=== PATIENT | female | born 1945 | race Caucasian/White ===

== ENCOUNTER 2023-11-25 16:43 | Inpatient (IN) | payer OTHER ==
[~2023-11-25] VITALS: Ht 157.5 cm; Wt 59.0 kg
[2023-11-25 16:59] VITALS: BP 151/78; PULSE 88; RESP 18; TEMP 98; O2SAT 98
[2023-11-25 21:02] LABS: BASOPHILS % (AUTO) 0.5 % (0.0-2.0); EOSINOPHILS # (AUTO) 0.1 K/uL (0-0.4); EOSINOPHILS % (AUTO) 1.2 % (0.0-4.0); HEMATOCRIT 33.4 % (36-48); HEMOGLOBIN 11.3 g/dL (12.0-16.0); LYMPHOCYTES # (AUTO) 1.7 K/uL (2.5-16.5); LYMPHOCYTES % (AUTO) 20.5 % (20.5-51.1); MEAN CORPUSCULAR HEMOGLOBIN 30 pg (27-31); MEAN CORPUSCULAR HGB CONC 34 g/dL (33-37); MONOCYTES # (AUTO) 1.2 K/uL (0.8-1.0); NEUTROPHILS # (AUTO) 5.4 K/uL (1.8-7.7); NEUTROPHILS % (AUTO) 63.8 % (42.2-75.2); PLATELET COUNT (AUTO) 345 K/uL (140-450); RED BLOOD CELL COUNT(AUTO) 3.79 MIL/uL (4.20-5.40); RED CELL DISTRIBUTION WIDTH 12.2 % (11.6-13.7); WHITE BLOOD COUNT (AUTO) 8.5 K/uL (4.8-10.8)
[2023-11-25 21:15] LABS: ANION GAP 18.2 (8-16); CARBON DIOXIDE 22.3 mmol/L (21-32); CHLORIDE 94 mmol/L (98-107); CREATININE 0.8 mg/dL (0.6-1.3); GLUCOSE 189 mg/dL (74-106); POTASSIUM 3.5 mmol/L (3.5-5.1); SODIUM SERUM 131 mmol/L (136-145); UREA NITROGEN, BLOOD 15 mg/dL (7-18)
[2023-11-25 21:21] LABS: ALBUMIN 3.2 g/dL (3.4-5.0); BILIRUBIN,DIRECT 0.2 mg/dL (0.0-0.3); TOTAL BILIRUBIN 0.7 mg/dL (0.0-1.0); TOTAL PROTEIN, SERUM 6.7 g/dL (6.4-8.2)
[2023-11-25 22:03] LABS: APPEARANCE,URINE SL CLOUDY (CLEAR); BILIRUBIN,URINE 1+ (NEGATIVE); BLOOD, URINE 1+ (NEGATIVE); COLOR,URINE YELLOW (YELLOW); LEUKOCYTE ESTERASE ,URINE 1+ (NEGATIVE); NITRITE, URINE NEGATIVE (NEGATIVE); PROTEIN,URINE 1+ (NEGATIVE); UGLUCOSE 3+ (NEGATIVE)
[2023-11-25 22:07] LABS: ICTOTEST NEGATIVE (NEGATIVE)
[2023-11-25 22:08] LABS: BACTERIA,URINE 2+ /HPF (None Seen); MUCUS,URINE None Seen /LPF (None Seen); SQUAMOUS EPITHELIAL CELL,UR 0-3 (FEW) /LPF (0-3 (FEW))
[2023-11-25] MEDS ORDERED: cefTRIAXone 1,000 MG VIAL ONE (22:40)
[2023-11-25] MEDS: ASPIRIN 81 MG TAB.CHEW PO ONE (22:51)
[2023-11-25] MEDS ORDERED: LOSA100T52 PO (23:38)
[2023-11-25] MEDS ORDERED: METF-350 PO (23:38)
[2023-11-25] MEDS ORDERED: POTA10CA28 PO (23:38)
[2023-11-25] MEDS ORDERED: PANT40EC56 PO (23:38)
[2023-11-25] MEDS ORDERED: ESCI20TA PO (23:42)
[2023-11-25] MEDS ORDERED: ISOS20TA13 PO (23:42)
[2023-11-25] MEDS ORDERED: LIP80 PO (23:42)
[2023-11-25] MEDS ORDERED: ATA25 PO (23:42)
[2023-11-25] MEDS ORDERED: BUS5 PO (23:42)
[2023-11-26] MEDS ORDERED: ONDANSETRON 4 MG/2 ML VIAL IVP PRN (02:00)
[2023-11-26] MEDS: NACL 0.9% 1,000 ML IV SCH (05:30)
[2023-11-26] MEDS: MORPHINE SULFATE 2 MG/ML SYR IVP PRN (07:55)
[2023-11-26] MEDS: HYDROcodone/APAP 5/325 MG 1 TAB TAB PO PRN (14:32)
[2023-11-26] MEDS: ACETAMINOPHEN 325 MG TAB PO PRN (18:06)
[2023-11-26 20:45] VITALS: BP 162/71; PULSE 96; PULSE 97; RESP 18; TEMP 97.9; O2SAT 97; O2SAT 98
[2023-11-26] MEDS: cefTRIAXone 1,000 MG VIAL ONE (21:52)
[2023-11-26] MEDS: HYDROXYZINE HYDROCHLORIDE 25 MG TAB PO ONE (23:42)
[2023-11-26] MEDS: ESCITALOPRAM 20 MG TAB PO ONE (23:43)
[2023-11-27 04:00] VITALS: BP 157/49; PULSE 78; RESP 18; TEMP 97.7; O2SAT 95
[2023-11-27 06:59] LABS: BASOPHILS % (AUTO) 0.5 % (0.0-2.0); EOSINOPHILS # (AUTO) 0.1 K/uL (0-0.4); EOSINOPHILS % (AUTO) 2.2 % (0.0-4.0); HEMATOCRIT 33.9 % (36-48); HEMOGLOBIN 11.6 g/dL (12.0-16.0); LYMPHOCYTES # (AUTO) 1.8 K/uL (2.5-16.5); LYMPHOCYTES % (AUTO) 28.7 % (20.5-51.1); MEAN CORPUSCULAR HEMOGLOBIN 30 pg (27-31); MEAN CORPUSCULAR HGB CONC 34 g/dL (33-37); MEAN CORPUSCULAR VOLUME 87.3 fL (80-94); MONOCYTES # (AUTO) 1.3 K/uL (0.8-1.0); MONOCYTES % (AUTO) 19.4 % (1.7-9.3); NEUTROPHILS # (AUTO) 3.2 K/uL (1.8-7.7); NEUTROPHILS % (AUTO) 49.2 % (42.2-75.2); PLATELET COUNT (AUTO) 373 K/uL (140-450); RED BLOOD CELL COUNT(AUTO) 3.88 MIL/uL (4.20-5.40); RED CELL DISTRIBUTION WIDTH 12.5 % (11.6-13.7); WHITE BLOOD COUNT (AUTO) 6.4 K/uL (4.8-10.8)
[2023-11-27 07:37] LABS: ALANINE AMINOTRANSFERASE 29 U/L (12-78); ALBUMIN 2.7 g/dL (3.4-5.0); ALKALINE PHOSPHATASE 82 U/L (50-136); ANION GAP 17.8 (8-16); ASPARTATE AMINOTRANSFERASE 34 U/L (15-37); CALCIUM 8.2 mg/dL (8.5-10.1); CARBON DIOXIDE 22.2 mmol/L (21-32); CHLORIDE 97 mmol/L (98-107); CREATININE 0.7 mg/dL (0.6-1.3); GLUCOSE 169 mg/dL (74-106); SODIUM SERUM 134 mmol/L (136-145); TOTAL BILIRUBIN 0.5 mg/dL (0.0-1.0); TOTAL PROTEIN, SERUM 6.9 g/dL (6.4-8.2); UREA NITROGEN, BLOOD 10 mg/dL (7-18)
[2023-11-27 08:00] VITALS: BP 167/70; PULSE 94; PULSE 97; RESP 18; TEMP 97.7; O2SAT 97; O2SAT 98
[2023-11-27] MEDS: HYDROXYZINE HYDROCHLORIDE 25 MG TAB PO SCH (08:56)
[2023-11-27] MEDS: busPIRone 5 MG TAB PO SCH ×2 (12:00→20:57)
[2023-11-27] MEDS ORDERED: NON-FORMULARY ITEM (Losartan Potassium 100 MG) PO SCH (15:17)
[2023-11-27] MEDS: POTASSIUM CHLORIDE 10 MEQ TABER PO SCH (16:32)
[2023-11-27] MEDS: LOSARTAN 50 MG TAB PO SCH (16:32)
[2023-11-27] MEDS: HYDROcodone/APAP 5/325 MG 1 TAB TAB PO PRN (18:40)
[2023-11-27 20:00] VITALS: BP 109/49; PULSE 103; RESP 18; TEMP 97.1; O2SAT 97; O2SAT 98
[2023-11-27] MEDS: ESCITALOPRAM 20 MG TAB PO SCH (20:58)
[2023-11-27] MEDS: FLUTICASONE NASAL 50 MCG/ACTUATION 16 GM BTL NS SCH (21:02)
[2023-11-28 04:00] VITALS: BP 149/55; PULSE 100; RESP 18; TEMP 97.2; O2SAT 97
[2023-11-28] MEDS: HYDRAGUARD CREAM TP ONE (05:04)
[2023-11-28 08:00] VITALS: BP 146/70; PULSE 88; RESP 18; TEMP 97.2; O2SAT 98; O2SAT 99
[2023-11-28] MEDS: ISOSORBIDE DINITRATE 20 MG TAB PO SCH (09:16)
[2023-11-28] MEDS: PANTOPRAZOLE 40 MG TABEC PO SCH (09:17)
[2023-11-28] MEDS: ATORVASTATIN 80 MG TAB PO SCH (09:17)
[2023-11-28] MEDS ORDERED: HYDRAGUARD CREAM TP PRN (13:00)
[2023-11-28 16:00] VITALS: BP 144/67; PULSE 103; RESP 18; TEMP 98.3; O2SAT 98
[2023-11-28 20:00] VITALS: PULSE 95; RESP 18; O2SAT 99
[2023-11-29 04:00] VITALS: BP 158/65; PULSE 98; RESP 18; TEMP 97.9; O2SAT 97
[2023-11-29 07:00] LABS: ALANINE AMINOTRANSFERASE 26 U/L (12-78); ALBUMIN 2.6 g/dL (3.4-5.0); ALKALINE PHOSPHATASE 82 U/L (50-136); ANION GAP 9.9 (8-16); ASPARTATE AMINOTRANSFERASE 23 U/L (15-37); CALCIUM 8.1 mg/dL (8.5-10.1); CARBON DIOXIDE 24.4 mmol/L (21-32); CHLORIDE 102 mmol/L (98-107); CREATININE 0.8 mg/dL (0.6-1.3); GLUCOSE 192 mg/dL (74-106); POTASSIUM 3.3 mmol/L (3.5-5.1); SODIUM SERUM 133 mmol/L (136-145); TOTAL BILIRUBIN 0.3 mg/dL (0.0-1.0); TOTAL PROTEIN, SERUM 6.5 g/dL (6.4-8.2); UREA NITROGEN, BLOOD 6 mg/dL (7-18)
[2023-11-29 08:11] LABS: BASOPHILS # (AUTO) 0.1 K/uL (0.00-0.22); BASOPHILS % (AUTO) 0.6 % (0.0-2.0); EOSINOPHILS # (AUTO) 0.3 K/uL (0-0.4); EOSINOPHILS % (AUTO) 3.6 % (0.0-4.0); HEMATOCRIT 31.2 % (36-48); HEMOGLOBIN 10.7 g/dL (12.0-16.0); LYMPHOCYTES # (AUTO) 1.6 K/uL (2.5-16.5); LYMPHOCYTES % (AUTO) 19.1 % (20.5-51.1); MEAN CORPUSCULAR HEMOGLOBIN 30 pg (27-31); MEAN CORPUSCULAR HGB CONC 34 g/dL (33-37); MONOCYTES # (AUTO) 1.2 K/uL (0.8-1.0); MONOCYTES % (AUTO) 14.3 % (1.7-9.3); NEUTROPHILS # (AUTO) 5.1 K/uL (1.8-7.7); NEUTROPHILS % (AUTO) 62.4 % (42.2-75.2); PLATELET COUNT (AUTO) 356 K/uL (140-450); RED BLOOD CELL COUNT(AUTO) 3.54 MIL/uL (4.20-5.40); RED CELL DISTRIBUTION WIDTH 12.6 % (11.6-13.7); WHITE BLOOD COUNT (AUTO) 8.2 K/uL (4.8-10.8)
[2023-11-29 09:00] VITALS: PULSE 104; RESP 20; O2SAT 99
[2023-11-29 12:04] VITALS: BP 115/82; PULSE 88; RESP 20; TEMP 97.6; O2SAT 98
[2023-11-29] MEDS: POTASSIUM CHLORIDE 10 MEQ TABER PO PRN (16:16)
[2023-11-29 20:00] VITALS: BP 122/65; PULSE 88; RESP 18; RESP 20; TEMP 98.6; O2SAT 97
[2023-11-30 04:00] VITALS: BP 117/60; PULSE 85; RESP 18; TEMP 98; O2SAT 96
[2023-11-30 08:00] VITALS: BP 143/63; PULSE 95; RESP 18; TEMP 98; O2SAT 100
[2023-11-30 08:56] VITALS: PULSE 95; RESP 18; O2SAT 95
[2023-11-30 15:57] VITALS: BP 143/63; PULSE 95; RESP 18; TEMP 98
== END 2023-11-30 16:15 | disposition home or self-care (01) | DRG 641 ==
LOC: MED 16:43 → MMU 11-26 07:01 → OBSVTOIN 11-26 07:01 → MTU 11-26 19:52
PROVIDERS: ADMIT Internal Medicine; ATTEND Internal Medicine
DX: E87.1 Hypo-osmolality and hyponatremia (principal); N39.0 Urinary tract infection, site not specified; I25.10 Atherosclerotic heart disease of native coronary artery without angina pectoris; I10 Essential (primary) hypertension; E11.9 Type 2 diabetes mellitus without complications; Z95.1 Presence of aortocoronary bypass graft; Z79.899 Other long term (current) drug therapy; Z90.49 Acquired absence of other specified parts of digestive tract
CPT/HCPCS: 36415; 71045; 80048; 80053; 80076; 81001; 83605; 83690; 84484; 85025; 87040; 87081; 87086; 93005; 97112; 97116; 97530; J0696; J1644; J2270; J7060